=== PATIENT | male | born 1995 | race American Indian/Alaskan Native ===

== ENCOUNTER 2019-04-08 15:16 | Emergency (ER) | payer MEDICAID, OTHER ==
[2019-04-08] MEDS ORDERED: levETIRAcetam 1000 MG/NS 0.75% 1,000 MG/100 ML BAG IV ONE ×2 (15:21→15:26)
--- NOTE | 2019-04-08 15:44 | Emergency Department Report ---
ED Seizure HPI - General Chief Complaint: Seizure Stated Complaint: SEIZURE Time Seen by Provider: 04/08/19 15:25 Source: patient, EMS Mode of arrival: Stretcher Limitations: No Limitations - History of Present Illness Initial Comments: 23-year-old male with a past medical history of seizures on Keppra and right lung empyema requiring chest tube (s/p removal) currently on IV Zosyn via PICC line presents from the intermediate with "status epilepticus". Patient received Ativan 2 mg o IM x2 prior to arrival without any improvement in seizure activity. Upon EMS arrival patient was initially speaking to them and then had another seizure in route to the hospital received Versed 5 mg. Patient having seizure-like activity upon arrival including fluttering of his eyes hands and feet. He controls his arm drop when lifted above his head. I made eye contact with the patient and started to talk to him he stopped his seizure-like activity and was able to have a conversation without any signs of a postictal state. Patient is alert and oriented to person and year and knows he is in the hospital and prefers to go to [facility]. Patient is also requesting that his mom will notify that he is here. He complains of generalized body pain. He states that the intermediate gives him his capital "sometimes" he denies drug use - Related Data Home Medications Medication Instructions Recorded Confirmed Last Taken Ibuprofen [Motrin] 600 mg PO Q8H PRN 10/26/13 10/26/13 10/25/13 09:00 Allergies Allergy/AdvReac Type Severity Reaction Status Date / Time seafood Allergy Swelling Uncoded 10/26/13 00:36 ED Review of Systems ROS: Stated complaint: SEIZURE Other details as noted in HPI Comment: All other systems reviewed and negative ED Past Medical Hx - Past Medical History Previous Medical History?: Yes Hx Seizures: Yes (no meds) - Surgical History Past Surgical History?: No - Social History Smoking Status: Never Smoker Substance Use Type: None - Medications Home Medications: Home Medications Medication Instructions Recorded Confirmed Last Taken Type Ibuprofen [Motrin] 600 mg PO Q8H PRN 10/26/13 10/26/13 10/25/13 09:00 History ED Physical Exam - General Limitations: No Limitations - Other Other exam information: General: No acute distress Head: Atraumatic Eyes: normal appearance, pupils equal reactive to light, extraocular movements intact ENT: Moist mucous membranes, no tongue laceration Neck: Normal appearance, no midline tenderness Chest: Clear to auscultation bilaterally CV: Regular rate and rhythm Abdomen: Soft, normal bowel sounds, nontender, nondistended, no rebound or guarding Back: Normal inspection Extremity: Normal inspection, full range of motion Neuro: Alert O x 3, no facial asymmetry, speech clear, no gross motor sensory deficit Psych: Appropriate behavior Skin: No rash ED Course Vital Signs 04/08/19 04/08/19 16:13 17:25 Temperature 98.0 F Pulse Rate 88 82 Respiratory 16 16 Rate Blood Pressure 103/60 115/60 [Right] O2 Sat by Pulse 100 80 L Oximetry ED Medical Decision Making - Lab Data Result diagrams: 04/08/19 15:37 04/08/19 15:37 Lab Results 04/08/19 04/08/19 04/08/19 Range/Units 15:37 15:37 Unknown WBC 5.3 (4.5-11.0) K/mm3 RBC 4.37 (3.65-5.03) M/mm3 Hgb 12.5 (11.8-15.2) gm/dl Hct 37.5 (35.5-45.6) % MCV 86 (84-94) fl MCH 29 (28-32) pg MCHC 33 (32-34) % RDW 17.5 H (13.2-15.2) % Plt Count 136 L (140-440) K/mm3 Lymph % (Auto) 18.3 (13.4-35.0) % [place] % (Auto) 13.0 H (0.0-7.3) % Eos % (Auto) 5.9 H (0.0-4.3) % Baso % (Auto) 1.4 (0.0-1.8) % Lymph # 1.0 L (1.2-5.4) K/mm3 [place] # 0.7 (0.0-0.8) K/mm3 Eos # 0.3 (0.0-0.4) K/mm3 Baso # 0.1 (0.0-0.1) K/mm3 Seg Neutrophils % 61.4 (40.0-70.0) % Seg Neutrophils # 3.3 (1.8-7.7) K/mm3 Sodium 140 (137-145) mmol/L Potassium 3.7 (3.6-5.0) mmol/L Chloride 105.7 (98-107) mmol/L Carbon Dioxide 21 L (22-30) mmol/L Anion Gap 17 mmol/L BUN 8 L (9-20) mg/dL Creatinine 1.2 (0.8-1.5) mg/dL Estimated GFR > 60 ml/min BUN/Creatinine Ratio 7 % Glucose 97 (75-100) mg/dL Calcium 9.1 (8.4-10.2) mg/dL Magnesium 2.00 (1.7-2.3) mg/dL Total Creatine Kinase 187 H (55-170) units/L Urine Opiates Screen Presumptive negative Urine Methadone Screen Presumptive negative Ur Barbiturates Screen Presumptive negative Ur Phencyclidine Scrn Presumptive negative Ur Amphetamines Screen Presumptive negative U Benzodiazepines Scrn Presumptive positive Urine Cocaine Screen Presumptive negative U Marijuana (THC) Screen Presumptive negative Drugs of Abuse Note Disclamer - Medical Decision Making Patient has been alert and oriented throughout ED stay once he stopped his pseudoseizures. Labs without any significant abnormality. UA positive for benzos which is likely the result of treatment for his seizure-like activity prior to arrival. Patient does have a documented history of seizures and is on Keppra and received Keppra 1g in the ED. Patient is neurologically intact and will be discharged back to intermediate. - Differential Diagnosis Seizure, pseudoseizure, electrolyte abnormality Critical Care Time: No Critical care attestation.: If time is entered above; I have spent that time in minutes in the direct care of this critically ill patient, excluding procedure time. ED Disposition Clinical Impression: Pseudoseizure, History of seizures Disposition: DC-01 TO HOME OR SELFCARE Is pt being admited?: No Does the pt Need Aspirin: No Condition: Stable Instructions: Non-epileptic Seizures (ED), Epilepsy (ED) Additional Instructions: Continue your current medications as prescribed. Follow-up with your doctor or doctor/clinic provided. Return if symptoms worsen as indicated by your discharge instructions. Referrals: PRIMARY CARE, [Primary Care Provider] - 3-5 Days LÓPEZ CUEVA MD [Staff Physician] - 7-10 days (neurology) Time of Disposition: 18:00
[2019-04-08 15:54] LABS: Basophils # (Auto) 0.1 K/mm3 (0.0-0.1); Basophils % (Auto) 1.4 % (0.0-1.8); Eosinophils # (Auto) 0.3 K/mm3 (0.0-0.4); Eosinophils % (Auto) 5.9 % (0.0-4.3); Hematocrit 37.5 % (35.5-45.6); Hemoglobin 12.5 gm/dl (11.8-15.2); Lymphocytes % (Auto) 18.3 % (13.4-35.0); Mean Corpuscular HGB Conc 33 % (32-34); Mean Corpuscular Volume 86 fl (84-94); Monocytes # (Auto) 0.7 K/mm3 (0.0-0.8); Platelet Count 136 K/mm3 (140-440); Red Blood Count 4.37 M/mm3 (3.65-5.03); Red Cell Distribution Width 17.5 % (13.2-15.2)
[2019-04-08 16:09] LABS: BUN/Creatinine Ratio 7; Blood Urea Nitrogen 8 mg/dL (9-20); Calcium 9.1 mg/dL (8.4-10.2); Hemolysis Index 24
[2019-04-08 16:31] LABS: Amphetamine Screen,Urine PRESUMPTIVE NEGATIVE; Cannabinoid Screen,Urine PRESUMPTIVE NEGATIVE; Cocaine Screen,Urine PRESUMPTIVE NEGATIVE; Methadone Screen,Urine PRESUMPTIVE NEGATIVE; Opiate Screen,Urine PRESUMPTIVE NEGATIVE
[2019-04-08 16:44] LABS: Benzodiazepines Screen,Urine PRESUMPTIVE POSITIVE
[2019-04-08] MEDS ORDERED: KETOROLAC 30 MG/1 ML INJ IV ONE (17:02)
[2019-04-08 18:20] VITALS: BP 117/65
== END 2019-04-08 18:20 | disposition home or self-care (01) ==
LOC: ED 15:16
DX: R56.9 Unspecified convulsions (principal); F15.10 Other stimulant abuse, uncomplicated; Z91.013 Allergy to seafood
CPT/HCPCS: 36415; 80048; 80307; 82550; 83735; 85025; 96374; 99284; J1953

== ENCOUNTER 2019-09-19 22:51 | Emergency (ER) | payer SELFPAY ==
[2019-09-19] MEDS ORDERED: levETIRAcetam 1000 MG/NS 0.75% 1,000 MG/100 ML BAG IV ONE (23:06)
[2019-09-19] MEDS ORDERED: SODIUM CHLORIDE 0.9% 1000 ML 1,000 ML IV ONE (23:06)
--- NOTE | 2019-09-19 23:08 | Emergency Department Report ---
ED Seizure HPI - General Chief Complaint: Seizure Stated Complaint: SEIZURE Time Seen by Provider: 09/19/19 22:55 Source: EMS Mode of arrival: Wheelchair Limitations: Altered Mental Status - History of Present Illness Initial Comments: Patient is a 23-year-old male that presents emergency room with seizures. Patient brought in by EMS. Report received from EMS. EMS states that the patient had 3 witnessed seizures today and 1 yesterday. EMS states that they witnessed 2 more in route. EMS states that they gave the patient 2 mg of Ativan for the first seizure and it stopped and then started back up and gave another 2 mg of Ativan and the patient continued to seize. EMS then called in for orders from our hospital and EMS gave 2.5 mg of Versed and the seizure stopped. Per EMS the patient is compliant with medications. Patient is currently taking Keppra. Complaint: seizure -: Sudden Description of Episode: loss of consciousness, tonic-clonic movement, bladder incontinence Witnessed:: Yes Trauma: No Seizure History: known seizure disorder, compliant with medication Place: home Possible Precipitating Event: none - Related Data Home Medications Medication Instructions Recorded Confirmed Last Taken Ibuprofen [Motrin] 600 mg PO Q8H PRN 10/26/13 10/26/13 10/25/13 09:00 Allergies Allergy/AdvReac Type Severity Reaction Status Date / Time seafood Allergy Swelling Uncoded 10/26/13 00:36 ED Review of Systems ROS: Stated complaint: SEIZURE Other details as noted in HPI Comment: Unobtainable due to pts medical conditions ED Past Medical Hx - Past Medical History Previous Medical History?: Yes Hx Seizures: Yes (no meds) - Surgical History Past Surgical History?: No - Family History Family history: no significant - Social History Smoking Status: Never Smoker Substance Use Type: None - Medications Home Medications: Home Medications Medication Instructions Recorded Confirmed Last Taken Type Ibuprofen [Motrin] 600 mg PO Q8H PRN 10/26/13 10/26/13 10/25/13 09:00 History ED Physical Exam - General Limitations: Altered Mental Status General appearance: alert, in no apparent distress - Head Head exam: Present: atraumatic, normocephalic - Eye Eye exam: Present: normal appearance, PERRL Pupils: Present: normal accommodation - ENT ENT exam: Present: mucous membranes dry - Neck Neck exam: Present: normal inspection - Respiratory Respiratory exam: Present: normal lung sounds bilaterally. Absent: respiratory distress - Cardiovascular Cardiovascular Exam: Present: regular rate, normal rhythm. Absent: systolic murmur, diastolic murmur, rubs, gallop - GI/Abdominal GI/Abdominal exam: Present: soft, normal bowel sounds - Rectal Rectal exam: Present: deferred - Extremities Exam Extremities exam: Present: normal inspection - Back Exam Back exam: Present: normal inspection - Neurological Exam Neurological exam: Present: altered - Skin Skin exam: Present: warm, dry, intact, normal color. Absent: rash ED Course Vital Signs 09/19/19 09/19/19 23:01 23:11 Temperature 98.3 F Pulse Rate 88 77 Respiratory 12 Rate Blood Pressure 112/66 O2 Sat by Pulse 97 95 Oximetry - Reevaluation(s) Reevaluation #1: Patient refuses to have his blood drawn. Patient refused care. Patient is awake alert and oriented x4. Patient answering all questions appropriately. Patient states he does not want to be in this hospital. Patient called his mother. Mother explained that she wanted the patient to go to [place] where he receives all of his care. Mother states the patient was discharged from [facility] this morning. Mother states that she is going to send his brother to pick him up. I discussed the risk with the patient of leaving the hospital AGAINST MEDICAL ADVICE. Patient states he wants to leave. Patient voiced understanding of risk. 09/19/19 23:47 Reevaluation #2: Patient left the hospital AGAINST MEDICAL ADVICE. Patient refused to sign AMA form. I signed with the nurse witnessing. Patient voiced understanding of risk of leaving AMA. 09/20/19 00:33 ED Medical Decision Making - Radiology Data Radiology results: report reviewed CT head/brain wo con INDICATION / CLINICAL INFORMATION: Seizure. TECHNIQUE: All CT scans at this location are performed using CT dose reduction for ALARA by means of automated exposure control. COMPARISON: None available. FINDINGS: Ventricle size is normal. No mass or mass effect is seen. There is no evidence of intracranial hemorrhage. No obvious area of infarction is identified. Visualized paranasal sinuses are clear. IMPRESSION: No acute findings - Medical Decision Making Patient is a 23-year-old male that presents emergency room via EMS for seizures. Patient had multiple seizures today. Patient required multiple dose of Ativan and a dose of 2.5 mg of Versed. Seizure finally terminated with Versed. Patient was initially lethargic upon arrival with EMS. Patient then became awake alert and oriented. Patient refused to have his blood drawn. Patient's head CT was done and will was negative for acute findings. Patient states he wants to leave the hospital AGAINST MEDICAL ADVICE. Patient refused to sign AMA form. Patient voiced understanding of the risk of leaving the hospital AGAINST MEDICAL ADVICE. I encouraged the patient to stay however the patient still left the hospital. Patient also refused Keppra. - Differential Diagnosis Seizure, status epilepticus Critical Care Time: Yes Critical care time in (mins) excluding proc time.: 35 Critical care attestation.: If time is entered above; I have spent that time in minutes in the direct care of this critically ill patient, excluding procedure time. Critical Care Time: 35 minutes ED Disposition Clinical Impression: Seizure, Status epilepticus Uncontrolled seizures Qualifiers: Convulsion type: unspecified Qualified Code(s): R56.9 - Unspecified convulsions Disposition: DC-07 LEFT AGAINST MED ADVICE Is pt being admited?: No Does the pt Need Aspirin: No Condition: Critical Forms: AMA Form Time of Disposition: 00:35
[2019-09-19 23:12] VITALS: BP 112/66
--- NOTE | 2019-09-20 00:35 | Cat Scan Report ---
CT head/brain wo con INDICATION / CLINICAL INFORMATION: Seizure. TECHNIQUE: All CT scans at this location are performed using CT dose reduction for ALARA by means of automated e xposure control. COMPARISON: None available. FINDINGS: Ventricle size is normal. No mass or mass effect is seen. There is no evidence of intracranial hemorr loretta. No obvious area of infarction is identified. Visualized paranasal sinuses are clear. IMPRESSION: No acute findings Signer Name: Ke Carvalho MD FACR Signed: 09/20/2019 12:31 AM Workstation Name: [id number]
== END 2019-09-20 00:40 | disposition left against medical advice (07) ==
LOC: ED 22:51
DX: G40.909 Epilepsy, unspecified, not intractable, without status epilepticus (principal); Z79.899 Other long term (current) drug therapy
CPT/HCPCS: 70450; 99284; J1953; J7030

== ENCOUNTER 2020-06-28 03:21 | Emergency (ER) | payer SELFPAY ==
--- NOTE | 2020-06-28 03:41 | Emergency Department Report ---
HPI - General Chief Complaint: Seizure Time Seen by Provider: 06/28/20 03:26 - HPI HPI: This is a 24-year-old -[place] male presents to the emergency department via EMS with a complaint of seizure-like activity. EMS witnessed some seizure- like activity and gave the patient 2 mg of Ativan IV. Apparently he continued to have a seizure for about 2 to 3 minutes in total. At the time of my examination the patient is awake, alert, oriented. He is refusing to be placed on the color television console monitor, is refusing laboratory evaluation and any further evaluation or treatment. The patient is unable to tell me the name of his current antiepileptic medication as he says it is something "new", and that he is not currently on the Keppra. He says that his last seizure prior to today was "months ago." The patient was here in September of last year for some seizure- like activity. He ended up leaving AMA from the emergency department at that time. Previous records show that he gets most of his care at [facility]. ED Past Medical Hx - Past Medical History Hx Seizures: Yes (no meds) - Social History Smoking Status: Never Smoker Substance Use Type: None - Medications Home Medications: Home Medications Medication Instructions Recorded Confirmed Last Taken Type Ibuprofen [Motrin] 600 mg PO Q8H PRN 10/26/13 10/26/13 10/25/13 09:00 History ED Review of Systems ROS: Stated complaint: SEIZURE Other details as noted in HPI Comment: All other systems reviewed and negative Constitutional: denies: chills, fever Eyes: denies: eye pain, vision change ENT: denies: ear pain, throat pain Respiratory: denies: cough, shortness of breath Cardiovascular: denies: chest pain, palpitations Gastrointestinal: denies: abdominal pain, vomiting Genitourinary: denies: dysuria, discharge Musculoskeletal: denies: back pain, arthralgia Skin: denies: rash, lesions Neurological: other (Seizure). denies: numbness Physical Exam - Physical Exam Physical Exam: GENERAL: The patient is well-developed well-nourished. HENT: Normocephalic. Atraumatic. Patient has moist mucous membranes. EYES: Extraocular motions are intact. NECK: Supple. Trachea is midline. CHEST/LUNGS: Clear to auscultation. There is no respiratory distress noted. HEART/CARDIOVASCULAR: Regular. There is no tachycardia. There is no murmur. ABDOMEN: Abdomen is soft, nontender. Patient has normal bowel sounds. SKIN: Skin is warm and dry. NEURO: The patient is awake, alert, and oriented. The patient is cooperative. The patient has no focal neurologic deficits. Normal speech. MUSCULOSKELETAL: There is no tenderness or deformity. There is no limitation range of motion. ED Medical Decision Making - Medical Decision Making This patient presented to the emergency department after he had some seizure- like activity at home. He received 2 mg of Ativan. By the time he arrived to the emergency department he is awake, alert, oriented and does not appear in any acute distress. Almost immediately the patient is requesting a phone so that he can call his mother and leave the emergency department. He reluctantly allowed us to get a set of vital signs. He would not allow for an EKG to be done, blood work to be drawn, medications to be given. At the time of my examination the patient is awake, alert, oriented, appropriate and has a normal decision-making capacity. I explained to the patient that leaving AMA at this time, without appropriate evaluation, could lead to further seizures. At this time we are unaware as to whether the seizures are occurring secondary to a history of epilepsy versus other etiologies such as electrolyte abnormalities, dysrhythmia, etc. Further seizures could lead to brain damage, debility, coma or even . The patient understands the risks involved in leaving AMA and has still decided to sign out AGAINST MEDICAL ADVICE. The AMA form has been signed. Due to the Ativan he was given, the patient remained in the emergency department until his mother picked him up and took responsibility for him. I explained to the patient that he should seek treatment somewhere, if he chooses not [facility] However, he is encouraged to return to our emergency department if he changes his mind about further evaluation and treatment or with any acute distress. Critical Care Time: No Critical care attestation.: If time is entered above; I have spent that time in minutes in the direct care of this critically ill patient, excluding procedure time. ED Disposition Clinical Impression: Seizure Disposition: DC-07 LEFT AGAINST MED ADVICE Is pt being admited?: No Additional Instructions: Please return to the emergency department if you change your mind about evaluation and treatment of your seizure disorder, or with any acute distress. Please follow-up with your primary care physician in the next few days. I have given you a referral for a local neurologist, Dr. Teran, to follow-up regarding your seizure disorder. Please avoid any alcohol or illicit drug use as this can lower your seizure threshold. Try to avoid excessive caffeine use. Try to get at least 8 hours of uninterrupted sleep per night. Due to your seizures, you are unable to drive or operate any vehicles or heavy machinery for at least 6 months or until cleared by a neurologist. Referrals: PCP, Your [Other] - 3-5 Days ALLAN TERAN MD [Referring] - 2-3 Days Forms: AMA Form Time of Disposition: 03:44
[2020-06-28 03:53] VITALS: BP 127/88
== END 2020-06-28 04:10 | disposition left against medical advice (07) ==
LOC: ED 03:21
DX: G40.909 Epilepsy, unspecified, not intractable, without status epilepticus (principal); Z79.899 Other long term (current) drug therapy; Z91.013 Allergy to seafood
CPT/HCPCS: 99283